=== PATIENT | male | born 1995 | race Caucasian/White ===

== ENCOUNTER 2019-02-12 17:28 | Observation (INO) ==
[2019-02-12 17:55] LABS: Bilirubin,Urine Small (Negative); Blood,Urine Negative (Negative); Clarity,Urine Clear (Clear); Color,Urine Dark Yellow (Yellow); Glucose,Urine (UA) Normal (Normal); Ketones,Urine Trace mg/dL (Negative); Leukocyte Esterase,Urine Negative (Negative); Nitrite,Urine Negative (Negative); PH,Urine 5.5 pH Units (5.0-8.0); Protein,Urine Trace mg/dL (Neg-Trace); Specific Gravity,Urine 1.027 (1.010-1.025); Urobilinogen,Urine Normal (Normal)
[2019-02-12 18:19] LABS: Amphetamine Screen,Urine Positive ng/mL (Cutoff=1000); Barbiturate Screen,Urine Negative ng/mL (Cutoff=200); Benzodiazepines Screen,Urine Negative ng/mL (Cutoff=200); Cannabinoid Screen,Urine Positive ng/mL (Cutoff = 50); Cocaine Screen,Urine Negative ng/mL (Cutoff= 300); Opiate Screen,Urine Negative ng/mL (Cutoff=300); Phencyclidine Screen,Urine Negative ng/mL (Cutoff=25)
[2019-02-12 19:05] LABS: Acetaminophen < 10 mcg/mL (10-20); Alanine Aminotransferase 595 Units/L (7-52); Albumin 4.2 g/dL (3.5-5.7); Albumin/Globulin Ratio 1.5 (1.1-2.2); Alkaline Phosphatase 157 Units/L (34-104); Aspartate Amino Transferase 101 Units/L (13-39); BUN/Creatinine Ratio 22 (6-26); Bilirubin,Direct 0.5 mg/dL (0.0-0.2); Bilirubin,Indirect 1.1 mg/dL (0.0-1.0); Bilirubin,Total 1.6 mg/dL (0.3-1.0); Blood Urea Nitrogen 22 mg/dL (6-20); Calcium 9.5 mg/dL (8.6-10.3); Carbon Dioxide 30 mEq/L (23-29); Chloride 100 mEq/L (98-107); Chol/HDL Ratio 3.3 (0-4.9); Cholesterol 113 mg/dL (< 200); Ethanol < 10 mg/dL (Less than 10); Globulin 2.8 g/dL (2.4-3.5); Glucose 115 mg/dL (70-105); HDL Cholesterol 34 mg/dL (40-59); LDL Cholesterol,Calculated 69 mg/dL (0-99); Osmolality,Calculated 288 (280-300); Potassium 3.9 mEq/L (3.5-5.1); Salicylate < 2.5 mg/dL (15.0-30.0); Sodium 137 mEq/L (136-145); Thyroid Stimulating Hormone 1.016 mcIU/mL (0.340-5.600); Triglycerides 48 mg/dL (< 150); eGFR For African Americans > 60 (> 60); eGFR For Non-African Americans > 60 (> 60)
[2019-02-12 19:16] LABS: Basophils % 0.4 %; Eosinophils # 0.2 K/mcL (0.0-0.6); Eosinophils % 2.2 %; Hematocrit 43.8 % (37.5-50.1); Immature Granulocytes % 0.4 % (0-4); Lymphocytes # 2.6 K/mcL (0.6-4.6); Lymphocytes % 28.2 %; Mean Corpuscular HGB Conc 34.2 g/dL (31.6-35.5); Mean Corpuscular Hemoglobin 30.2 pg (28.0-33.3); Mean Corpuscular Volume 88.1 fL (83.0-100.0); Mean Platelet Volume 8.3 fL (9.4-12.4); Monocytes # 0.7 K/mcL (0.0-1.3); Monocytes % 7.9 %; Neutrophils # 5.6 K/mcL (1.6-8.9); Platelet Count 240 K/mcL (140-400); Red Blood Count 4.97 M/mcL (4.19-5.50); Red Cell Distribution Width 13.5 % (11.5-14.5); Segmented Neutrophils % 60.9 %; White Blood Count 9.1 K/mcL (4.3-11.1)
[2019-02-12 19:22] LABS: Estimated Average Glucose 91 mg/dl
[2019-02-12] MEDS ORDERED: *HR* LORazepam 2 MG/ML VIAL IM ONE (20:01)
[2019-02-12] MEDS ORDERED: Haloperidol Lactate 5 MG/ML VIAL IM ONE (20:01)
[2019-02-12 21:00] LABS: Hepatitis B Surface Antigen Nonreactive (Nonreactive)
[2019-02-12 21:30] LABS: Hepatitis A Antibody IgM Nonreactive (Nonreactive); Hepatitis B Core IgM Nonreactive (Nonreactive)
[2019-02-12 22:34] LABS: INR 1.2; Prothrombin Time 13.6 Seconds (9.4-12.1)
[2019-02-13] MEDS ORDERED: Ondansetron ODT 4 MG TAB.RAPDIS SL PRN (03:01)
[2019-02-13] MEDS ORDERED: Naloxone 0.4 MG/ML INJ IVP PRN (03:01)
[2019-02-13] MEDS ORDERED: *HR* LORazepam 2 MG/ML VIAL IVP PRN (03:06)
[2019-02-13] MEDS: Ringers Solution, Lactated 1,000 ML IVC SCH ×2 (03:44→12:12)
[2019-02-13 04:25] LABS: VBG HCO3 30 mEq/L (21-27); VBG PCO2 47 mmHg (41-51); VBG PH 7.41 pH Units (7.32-7.42); VBG PO2 161 mmHg (25-50)
[2019-02-13 04:26] LABS: Basophils % 0.5 %; Eosinophils # 0.3 K/mcL (0.0-0.6); Eosinophils % 5.2 %; Hematocrit 39.7 % (37.5-50.1); Hemoglobin 13.6 g/dL (12.9-16.9); Immature Granulocytes % 0.5 % (0-4); Lymphocytes # 2.1 K/mcL (0.6-4.6); Lymphocytes % 37.8 %; Mean Corpuscular HGB Conc 34.3 g/dL (31.6-35.5); Mean Corpuscular Hemoglobin 30.2 pg (28.0-33.3); Mean Corpuscular Volume 88.2 fL (83.0-100.0); Mean Platelet Volume 8.2 fL (9.4-12.4); Monocytes # 0.5 K/mcL (0.0-1.3); Monocytes % 9.3 %; Neutrophils # 2.6 K/mcL (1.6-8.9); Platelet Count 210 K/mcL (140-400); Red Cell Distribution Width 13.4 % (11.5-14.5); Segmented Neutrophils % 46.7 %; White Blood Count 5.6 K/mcL (4.3-11.1)
[2019-02-13 04:27] LABS: INR 1.2; Prothrombin Time 13.1 Seconds (9.4-12.1)
[2019-02-13 04:43] LABS: Alanine Aminotransferase 442 Units/L (7-52); Albumin 3.6 g/dL (3.5-5.7); Albumin/Globulin Ratio 1.4 (1.1-2.2); Alkaline Phosphatase 145 Units/L (34-104); Aspartate Amino Transferase 83 Units/L (13-39); BUN/Creatinine Ratio 23 (6-26); Bilirubin,Total 1.5 mg/dL (0.3-1.0); Blood Urea Nitrogen 21 mg/dL (6-20); Calcium 9.1 mg/dL (8.6-10.3); Carbon Dioxide 30 mEq/L (23-29); Chloride 102 mEq/L (98-107); Chol/HDL Ratio 3.6 (0-4.9); Cholesterol 93 mg/dL (< 200); Globulin 2.5 g/dL (2.4-3.5); Glucose 84 mg/dL (70-105); HDL Cholesterol 26 mg/dL (40-59); LDL Cholesterol,Calculated 56 mg/dL (0-99); Magnesium 2.3 mg/dL (1.6-2.6); Osmolality,Calculated 292 (280-300); Phosphorous 4.5 mg/dL (2.7-4.5); Sodium 140 mEq/L (136-145); Total Protein 6.1 g/dL (6.4-8.9); Triglycerides 55 mg/dL (< 150); eGFR For African Americans > 60 (> 60); eGFR For Non-African Americans > 60 (> 60)
[2019-02-13 04:53] LABS: Hepatitis C Virus Antibody Reactive (Nonreactive)
[2019-02-13 04:58] LABS: Thyroid Stimulating Hormone 1.196 mcIU/mL (0.340-5.600)
[2019-02-13] MEDS: *HR* Heparin 5,000 UNIT/ML VIAL SQ SCH ×2 (06:03→17:14)
[2019-02-13] MEDS ORDERED: Lactulose Oral Soln 20 GM/30 ML UDC PO SCH (09:00)
[2019-02-13] MEDS: Nicotine 14 MG PATCH.TD24 TD SCH (09:18)
[2019-02-13 12:53] LABS: Bilirubin,Urine Small (Negative); Blood,Urine Negative (Negative); Clarity,Urine Clear (Clear); Color,Urine Dark Yellow (Yellow); Glucose,Urine (UA) Normal (Normal); Ketones,Urine Negative (Negative); Leukocyte Esterase,Urine Negative (Negative); Nitrite,Urine Negative (Negative); PH,Urine 6.5 pH Units (5.0-8.0); Protein,Urine Negative (Neg-Trace); Specific Gravity,Urine 1.024 (1.010-1.025); Urobilinogen,Urine Normal (Normal)
[2019-02-13] MEDS: Lactulose Oral Soln 20 GM/30 ML UDC PO SCH ×2 (14:51→21:45)
[2019-02-13] MEDS: Nicotine 2 MG GUM BC PRN ×2 (17:14→19:50)
[2019-02-14] MEDS: *HR* Heparin 5,000 UNIT/ML VIAL SQ SCH (05:25)
[2019-02-14 05:41] LABS: Prothrombin Time 11.2 Seconds (9.4-12.1)
[2019-02-14 05:42] LABS: Basophils % 0.4 %; Eosinophils # 0.3 K/mcL (0.0-0.6); Eosinophils % 5.5 %; Hematocrit 38.6 % (37.5-50.1); Hemoglobin 13.1 g/dL (12.9-16.9); Immature Granulocytes % 0.4 % (0-4); Lymphocytes # 1.9 K/mcL (0.6-4.6); Lymphocytes % 41.5 %; Mean Corpuscular HGB Conc 33.9 g/dL (31.6-35.5); Mean Corpuscular Hemoglobin 30.4 pg (28.0-33.3); Mean Corpuscular Volume 89.6 fL (83.0-100.0); Mean Platelet Volume 8.7 fL (9.4-12.4); Monocytes # 0.5 K/mcL (0.0-1.3); Monocytes % 11.3 %; Neutrophils # 1.9 K/mcL (1.6-8.9); Platelet Count 173 K/mcL (140-400); Red Blood Count 4.31 M/mcL (4.19-5.50); Red Cell Distribution Width 13.3 % (11.5-14.5); Segmented Neutrophils % 40.9 %; White Blood Count 4.5 K/mcL (4.3-11.1)
[2019-02-14 05:46] LABS: Alanine Aminotransferase 293 Units/L (7-52); Albumin 3.3 g/dL (3.5-5.7); Albumin/Globulin Ratio 1.5 (1.1-2.2); Alkaline Phosphatase 125 Units/L (34-104); Aspartate Amino Transferase 45 Units/L (13-39); BUN/Creatinine Ratio 16 (6-26); Bilirubin,Total 0.8 mg/dL (0.3-1.0); Blood Urea Nitrogen 14 mg/dL (6-20); Calcium 8.7 mg/dL (8.6-10.3); Carbon Dioxide 31 mEq/L (23-29); Chloride 104 mEq/L (98-107); Globulin 2.2 g/dL (2.4-3.5); Glucose 95 mg/dL (70-105); Magnesium 2.1 mg/dL (1.6-2.6); Osmolality,Calculated 290 (280-300); Potassium 4.3 mEq/L (3.5-5.1); Sodium 140 mEq/L (136-145); Total Protein 5.5 g/dL (6.4-8.9); eGFR For African Americans > 60 (> 60); eGFR For Non-African Americans > 60 (> 60)
[2019-02-14] MEDS: Nicotine 2 MG GUM BC PRN ×2 (08:34→12:04)
[2019-02-14] MEDS: Lactulose Oral Soln 20 GM/30 ML UDC PO SCH (08:34)
[2019-02-14] MEDS: Nicotine 14 MG PATCH.TD24 TD SCH ×2 (08:36→13:38)
[2019-02-14 14:59] VITALS: BP 112/72
== END 2019-02-14 16:31 | disposition home or self-care (01) ==
LOC: EMEROOARM 17:28 → 3BNU 17:28
PROVIDERS: ADMIT Internal Medicine; ATTEND Internal Medicine

== ENCOUNTER 2019-09-13 22:51 | Inpatient (IN) ==
[2019-09-14] MEDS ORDERED: QUEtiapine Fumarate 25 MG TABLET PO PRN (01:19)
[2019-09-14] MEDS ORDERED: *HR* LORazepam 1 MG TABLET PO PRN (01:19)
[2019-09-14] MEDS ORDERED: Haloperidol Lactate 5 MG/ML VIAL IM PRN (01:19)
[2019-09-14] MEDS ORDERED: hydrOXYzine pamoate 25 MG CAPSULE PO PRN (01:19)
[2019-09-14] MEDS ORDERED: Mag Hydrox/Al Hydrox/Simeth 30 ML UDC PO PRN (01:19)
[2019-09-14] MEDS ORDERED: Ibuprofen 400 MG TABLET PO PRN (01:19)
[2019-09-14] MEDS ORDERED: haloperidoL 5 MG TABLET PO PRN (01:19)
[2019-09-14] MEDS ORDERED: *HR* LORazepam 2 MG/ML VIAL IM PRN (01:19)
[2019-09-14] MEDS ORDERED: MOM Conc 10 ML UD.LIQ PO PRN (01:19)
[2019-09-14] MEDS ORDERED: Nicotine 2 MG GUM BC PRN (01:30)
[2019-09-15] MEDS: Nicotine 21 MG PATCH.TD24 TD SCH (12:00)
[2019-09-15] MEDS ORDERED: ChlorproMAZINE 25 MG/ML AMPUL IM ONE (13:01)
[2019-09-15 21:13] VITALS: BP 90/64
[2019-09-16] MEDS: Nicotine 21 MG PATCH.TD24 TD SCH (09:34)
== END 2019-09-16 13:05 | disposition home or self-care (01) | DRG 776 ==
LOC: EMEROOARM 22:51 → 1ANU 09-14 01:17
PROVIDERS: ADMIT Psychiatry & Neurology Psychiatry; ATTEND Psychiatry & Neurology Psychiatry